=== PATIENT | female | born 1950 | race Caucasian/White ===

== ENCOUNTER 2018-11-09 18:19 | Emergency (ER) | payer BC, MEDICARE ==
[~2018-11-09] VITALS: Ht 165.1 cm; Wt 78.5 kg
--- NOTE | 2018-11-09 18:23 | ED.ADGEN ---
Adult General Chief Complaint Chief Complaint ".. I was at .. and cooking all day.. and I got dizzy.. probably dehydrated.. this is same thing that happen last year in October... " HPI HPI Patient is a 68 year old female who presents with above hx and complaints of near syncope. 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 Patient denies any travel. Patient denies specific ill contacts. Levi leigh normally follows with Dr. Dickson. Patient does have history of hypertension. Patient states he has had a previous episode similar to this last October when she got dehydrated. Patient denies trauma. Patient denies chest pain or dyspnea. Patient states her symptoms went away soon as she sat down. Patient denies any feelings of tachycardia or dysrhythmia Review of Systems Review of Systems Constitutional: Denies fever or chills [] Eyes: Denies change in visual acuity, redness, or eye pain [] HENT: Denies nasal congestion or sore throat [] Respiratory: Denies cough or shortness of breath [] Cardiovascular: No additional information not addressed in HPI [] GI: Denies abdominal pain, nausea, vomiting, bloody stools or diarrhea [] : Denies dysuria or hematuria [] Musculoskeletal: Denies back pain or joint pain [] Integument: Denies rash or skin lesions [] Neurologic: Denies headache, focal weakness or sensory changes []complaints of dizziness complaints Endocrine: Denies polyuria or polydipsia [] All other systems were reviewed and found to be within normal limits, except as documented in this note. Family History Family History Noncontributory Current Medications Current Medications Current Medications Medications (Trade) Dose Ordered Sig/Kenna Start Time Stop Time Status Last Admin Dose Admin Lactated Ringer's 1,000 ml @ 100 mls/hr Q10H 11/09/18 18:24 11/09/18 22:20 DC 11/09/18 19:14 100 MLS/HR Allergies Allergies Allergies Coded Allergies Type Severity Reaction Last Updated Verified cefdinir Allergy Unknown 11/09/18 Yes Physical Exam Physical Exam Constitutional: Well developed, well nourished, no acute distress, non-toxic appearance. [] HENT: Normocephalic, atraumatic, bilateral external ears normal, oropharynx dry, no oral exudates, nose normal. [] Eyes: PERRLA, EOMI, conjunctiva normal, no discharge. [] Neck: Normal range of motion, no tenderness, supple, no stridor. [] Cardiovascular:Heart rate regular rhythm, no murmur [] Lungs & Thorax: Bilateral breath sounds equal at apex on auscultation [] Abdomen: Bowel sounds normal, soft, no tenderness, no masses, no pulsatile masses. [] Skin: Warm, dry, no erythema, no rash. [] Back: No tenderness, no CVA tenderness. [] Extremities: No tenderness, no cyanosis, no clubbing, ROM intact, no edema. [] Neurologic: Alert and oriented X 3, normal motor function, normal sensory function, no focal deficits noted. []Math Instructor equal. No drift. DTRs +2 patella and brachial. Ambulatory without problems after hydration. Psychologic: Affect normal, judgement normal, mood normal. [] Current Patient Data Vital Signs Vital Signs Date Time Temp Pulse Resp B/P (MAP) Pulse Ox O2 Delivery O2 Flow Rate FiO2 11/09/18 22:17 82 16 135/76 (95) 97 Room Air 11/09/18 19:05 98.4 Lab Results Laboratory Tests Test 11/09/18 18:47 11/09/18 19:40 White Blood Count 8.8 x10^3/uL (4.0-11.0) Red Blood Count 4.11 x10^6/uL (3.50-5.40) Hemoglobin 13.7 g/dL (12.0-15.5) Hematocrit 39.4 % (36.0-47.0) Mean Corpuscular Volume 96 fL (79-100) Mean Corpuscular Hemoglobin 33 pg (25-35) Mean Corpuscular Hemoglobin Concent 35 g/dL (31-37) Red Cell Distribution Width 12.5 % (11.5-14.5) Platelet Count 272 x10^3/uL (140-400) Neutrophils (%) (Auto) 62 % (31-73) Lymphocytes (%) (Auto) 28 % (24-48) Monocytes (%) (Auto) 9 % (0-9) Eosinophils (%) (Auto) 1 % (0-3) Basophils (%) (Auto) 1 % (0-3) Neutrophils # (Auto) 5.4 x10^3uL (1.8-7.7) Lymphocytes # (Auto) 2.5 x10^3/uL (1.0-4.8) Monocytes # (Auto) 0.8 x10^3/uL (0.0-1.1) Eosinophils # (Auto) 0.1 x10^3/uL (0.0-0.7) Basophils # (Auto) 0.0 x10^3/uL (0.0-0.2) Erythrocyte Sedimentation Rate 21 (0-25) Prothrombin Time 10.4 SEC (9.4-11.4) Prothrombin Time INR 1.0 (0.9-1.1) Activated Partial Thromboplast Time 24 SEC (23-33) D-Dimer (Margarita) 0.55 mg/L (0.00-0.50) H Sodium Level 132 mmol/L (136-145) L Potassium Level 3.4 mmol/L (3.5-5.1) L Chloride Level 95 mmol/L (98-107) L Carbon Dioxide Level 28 mmol/L (21-32) Anion Gap 9 (6-14) Blood Urea Nitrogen 16 mg/dL (7-20) Creatinine 1.0 mg/dL (0.6-1.0) Estimated GFR (Cockcroft-Gault) 54.8 Glucose Level 123 mg/dL (70-99) H Calcium Level 9.0 mg/dL (8.5-10.1) Magnesium Level 1.9 mg/dL (1.8-2.4) Total Bilirubin 1.1 mg/dL (0.2-1.0) H Direct Bilirubin 0.3 mg/dL (0.0-0.2) H Aspartate Amino Transferase (AST) 24 U/L (15-37) Alanine Aminotransferase (ALT) 38 U/L (14-59) Alkaline Phosphatase 61 U/L (46-116) Creatine Kinase 65 U/L (26-192) Troponin I Quantitative < 0.017 ng/mL (0-0.055) OU-Dqp-M-Type Natriuretic Peptide 172 pg/mL (0-124) H Total Protein 7.3 g/dL (6.4-8.2) Albumin 4.1 g/dL (3.4-5.0) Lipase 92 U/L (73-393) Urine Collection Type Unknown Urine Color Yellow Urine Clarity Clear Urine pH 7.0 Urine Specific [place] 1.015 Urine Protein Neg (NEG-TRACE) Urine Glucose (UA) Neg mg/dL (NEG) Urine Ketones (Stick) Trace mg/dL (NEG) Urine Blood Trace (NEG) Urine Nitrite Neg (NEG) Urine Bilirubin Neg (NEG) Urine Urobilinogen Dipstick 0.2 mg/dL (0.2 mg/dL) Urine Leukocyte Esterase Neg (NEG) Urine RBC Occ /HPF (0-2) Urine WBC Occ /HPF (0-4) Urine Squamous Epithelial Cells Occ /LPF Urine Bacteria 0 /HPF (0-FEW) Urine Opiates Screen Neg (NEG) Urine Methadone Screen Neg (NEG) Urine Barbiturates Neg (NEG) Urine Phencyclidine Screen Neg (NEG) Urine Amphetamine/Methamphetamine Neg (NEG) Urine Benzodiazepines Screen Neg (NEG) Urine Cocaine Screen Neg (NEG) Urine Cannabinoids Screen Neg (NEG) Urine Ethyl Alcohol Neg (NEG) EKG EKG I interpretation of EKG shows a sinus rhythm at 75 bpm. There is nonspecific T- wave changes. And prolonged QT interval. At 424 milliseconds. Anicteric QTC is normal at 476.[] Radiology/Procedures Radiology/Procedures [[address] [address] IMAGING REPORT Signed PATIENT: CINDI FRAZIER RACCOUNT: [id number] : 1950 LOCATION: ER AGE: 68 SEX: F EXAM STATUS: REG ER ORD. PHYSICIAN: NEVAEH RODRIGUEZ MD REASON: near syncope PROCEDURE: CT HEAD WO CONTRAST Exam: CT head INDICATION: Near syncope TECHNIQUE: Sequential axial images through the head were obtained without the administration of IV contrast. Comparisons: None FINDINGS: No focal parenchymal lesion or hemorrhage is identified. There is no midline shift or sulcal effacement. Patchy areas of hypodensity within the periventricular and deep subcortical white matter. Subcentimeter focal hypodensity in the right internal capsule likely representing lacunar infarct. The ventricular system is within normal limits without compression hydrocephalus. The basal cisterns are well maintained. The visualized portions of the paranasal sinuses and mastoid air cells are well-pneumatized. No acute fractures. IMPRESSION: Patchy hypodensities in the periventricular and subcortical deep white matter which are age-indeterminate, likely chronic ischemic change. Exposure: One or more of the following in the visualized dose reduction techniques were utilized for this examination: 1. Automated exposure control 2. Adjustment of the MA and/or KV according to patient size Use of iterative of reconstructive technique Electronically signed by: Nell Dupree MD (11/09/2018 6:48 PM) [facility] DICTATED AND SIGNED BY: NELL DUPREE MD DATE: 11/09/18 201 CC: NEVAEH RODRIGUEZ MD; KIRK DICKSON MD ~][place] [address] IMAGING REPORT Signed PATIENT: CINDI FRAZIERUNT: [id number] : 1950 LOCATION: ER AGE: 68 SEX: F EXAM STATUS: REG ER ORD. PHYSICIAN: NEVAEH RODRIGUEZ MD REASON: near syncope PROCEDURE: PORTABLE CHEST 1V Exam: Chest one view INDICATION: Near syncope TECHNIQUE: Frontal view of the chest Comparisons: None FINDINGS: The cardiomediastinal silhouette and pulmonary vessels are within normal limits. The lung and pleural spaces are clear. IMPRESSION: No acute cardiopulmonary process. Electronically signed by: Nell Dupree MD (11/09/2018 7:00 PM) [facility] DICTATED AND SIGNED BY: NELL DUPREE MD DATE: 11/09/18 655 CC: NEVAEH RODRIGUEZ MD; KIRK DICKSON MD ~ Course & Med Decision Making Course & Med Decision Making Pertinent Labs and Imaging studies reviewed. (See chart for details). After IV fluids patient states her symptoms resolved. Patient was ambulatory without problems. Patient requesting discharge. Risk and benefits of discharge discussed. Patient states she will follow-up primary care or return if there is any problems. was in agreement with her decision to be discharged [] Final Impression Final Impression 1. Near Syncope[] 2. Dehydration 3. Hx. of Hypertension 4. Hyponatremia 132 5. Hypokalemia 6. Mild Elevation D-dimer 0.55 Dragon Disclaimer Dragon Disclaimer This electronic medical record was generated, in whole or in part, using a voice recognition dictation system. Dragon Disclaimer This chart was dictated in whole or in part using Voice Recognition software in a busy, high-work load, and often noisy Emergency Department environment. It may contain unintended and wholly unrecognized errors or omissions. NEVAEH RODRIGUEZ MD Nov 09, 2018 18:22
[2018-11-09] MEDS ORDERED: IV RINGERS SOLUTION,LACTATED 1,000 ML IV SCH (18:24)
--- NOTE | 2018-11-09 18:51 | RAD ---
Exam: CT head INDICATION: Near syncope TECHNIQUE: Sequential axial images through the head were obtained without the administration of IV contrast. Comparisons: None FINDINGS: No focal parenchymal lesion or hemorrhage is identified. There is no midline shift or sulcal effacement. Patchy areas of hypodensity within the periventricular and deep subcortical white matter. Subcentimeter focal hypodensity in the right internal capsule likely representing lacunar infarct. The ventricular system is within normal limits without compression hydrocephalus. The basal cisterns are well maintained. The visualized portions of the paranasal sinuses and mastoid air cells are well-pneumatized. No acute fractures. IMPRESSION: Patchy hypodensities in the periventricular and subcortical deep white matter which are age-indeterminate, likely chronic ischemic change. Exposure: One or more of the following in the visualized dose reduction techniques were utilized for this examination: 1. Automated exposure control 2. Adjustment of the MA and/or KV according to patient size Use of iterative of reconstructive technique Electronically signed by: Nell Arnold MD (11/09/2018 6:48 PM) [facility]
--- NOTE | 2018-11-09 19:02 | RAD ---
Exam: Chest one view INDICATION: Near syncope TECHNIQUE: Frontal view of the chest Comparisons: None FINDINGS: The cardiomediastinal silhouette and pulmonary vessels are within normal limits. The lung and pleural spaces are clear. IMPRESSION: No acute cardiopulmonary process. Electronically signed by: Nell Arnold MD (11/09/2018 7:00 PM) [facility]
[2018-11-09 19:22] LABS: BASO % 1 % (0-3); EOS # 0.1 x10^3/uL (0.0-0.7); EOS % 1 % (0-3); HEMATOCRIT 39.4 % (36.0-47.0); HEMOGLOBIN 13.7 g/dL (12.0-15.5); LYMPH # 2.5 x10^3/uL (1.0-4.8); LYMPH % 28 % (24-48); MEAN CORPUSCULAR HEMOGLOBIN 33 pg (25-35); MEAN CORPUSCULAR HGB CONC 35 g/dL (31-37); MEAN CORPUSCULAR VOLUME 96 fL (79-100); MONO # 0.8 x10^3/uL (0.0-1.1); MONO % 9 % (0-9); NEUT # 5.4 x10^3uL (1.8-7.7); NEUT % 62 % (31-73); PLATELET COUNT 272 x10^3/uL (140-400); RED BLOOD COUNT 4.11 x10^6/uL (3.50-5.40); RED CELL DISTRIBUTION WIDTH 12.5 % (11.5-14.5); WHITE BLOOD COUNT 8.8 x10^3/uL (4.0-11.0)
[2018-11-09 19:47] LABS: ALBUMIN 4.1 g/dL (3.4-5.0); DIRECT BILIRUBIN 0.3 mg/dL (0.0-0.2); GFR 54.8; MAGNESIUM 1.9 mg/dL (1.8-2.4); POTASSIUM 3.4 mmol/L (3.5-5.1); TOTAL BILIRUBIN 1.1 mg/dL (0.2-1.0); TOTAL PROTEIN 7.3 g/dL (6.4-8.2)
[2018-11-09 20:13] LABS: BARBITURATES NEG (NEG); BENZODIAZEPINES NEG (NEG); CANNABINOIDS NEG (NEG); COCAINE NEG (NEG); METHADONE NEG (NEG); OPIATES NEG (NEG); PHENCYCLIDINE NEG (NEG)
[2018-11-09 20:16] LABS: AMPHETAMINE/METHAMPHETAMINE NEG (NEG)
[2018-11-09 20:32] LABS: SEDIMENTATION RATE 21 (0-25)
[2018-11-09 20:50] LABS: BACTERIA,URINE 0 /HPF (0-FEW); BILIRUBIN,URINE NEG (NEG); CLARITY,URINE CLEAR; COLOR,URINE YELLOW; GLUCOSE,URINE NEG (NEG); NITRITE,URINE NEG (NEG); RBC,URINE OCC /HPF (0-2); SQUAMOUS EPITHELIAL CELL,UR OCC /LPF; UROBILINOGEN,URINE 0.2 mg/dL (0.2 mg/dL); WBC,URINE OCC /HPF (0-4)
[2018-11-09 22:17] VITALS: BP 135/76
--- NOTE | 2018-11-10 06:39 | EKG ---
[address] [address] Test Date: 2018-11-09 Test Time: 18:43:21 Pat Name: CINDI FRAZIER Department: Room: Gender: F Software Database Architect: : 1950 Requested By: NEVAEH RODRIGUEZ Order Number: [id number] Reading MD: Measurements Intervals [place] Rate: 75 P: 62 IA: 164 QRS: 7 QRSD: 102 T: 64 QT: 424 QTc: 476 Interpretive Statements SINUS RHYTHM T ABNORMALITY IN HIGH LATERAL LEADS PROLONGED QT ABNORMAL ECG RI6.01 No previous ECG available for comparison
[2018-11-10 20:50] LABS: THYROID STIM HORMONE (TSH) 2.495 uIU/mL (0.358-3.740)
== END 2018-11-09 22:20 | disposition home or self-care (01) ==
LOC: ER 18:19
DX: R55 Syncope and collapse (principal); E86.0 Dehydration; I10 Essential (primary) hypertension; E87.1 Hypo-osmolality and hyponatremia; E87.6 Hypokalemia; R79.1 Abnormal coagulation profile; Z88.1 Allergy status to other antibiotic agents
CPT/HCPCS: 36415; 70450; 71045; 80048; 80061; 80076; 80307; 81001; 82550; 83690; 83735; 83880; 84443; 84484; 85025; 85379; 85610; 85651; 85730; 93005; 96360; 96361; 99285; J7120

== ENCOUNTER 2018-11-21 13:26 | Observation (INO) | payer BC, MEDICARE ==
[~2018-11-21] VITALS: Ht 167.6 cm; Wt 80.3 kg
--- NOTE | 2018-11-21 13:56 | PHYS DOC ---
Past History Past Medical History: Hypertension, Hypothyroid Past Surgical History: No Surgical History Alcohol Use: None Drug Use: None Adult General Chief Complaint Chief Complaint: DIZZY/LIGHT HEADED [facility] HPI Patient is a 68-year-old female who presents with acute onset of generalized weakness that started a little after 11:30 this morning. She states that [facility] and suddenly she felt very weak and felt like she needed to sit down or she might pass out. She states that she got a little bit nauseated but did not develop any chest pain. She does feel a little bit short of breath. She denies any diaphoresis. She states that she had a very similar episode on the of this month. She denies any syncope or vertigo.[] Review of Systems Review of Systems Constitutional: Denies fever or chills [] Respiratory: Denies cough or shortness of breath [] Cardiovascular: No additional information not addressed in HPI [] GI: Denies abdominal pain. Positive nausea without vomiting. [] Neurologic: Denies headache, focal weakness or sensory changes [] All other systems were reviewed and found to be within normal limits, except as documented in this note. Allergies Allergies Allergies Coded Allergies Type Severity Reaction Last Updated Verified cefdinir Allergy Unknown 11/21/18 Yes Physical Exam Physical Exam Constitutional: Well developed, well nourished, no acute distress, non-toxic appearance. [] HENT: Normocephalic, atraumatic, bilateral external ears normal, oropharynx moist, no oral exudates, nose normal. [] Eyes: PERRLA, EOMI, conjunctiva normal, no discharge. [] Neck: Normal range of motion, no tenderness, supple. [] Cardiovascular: Regular rate and rhythm[] Lungs & Thorax: Bilateral breath sounds clear to auscultation [] Abdomen: Bowel sounds normal, soft, no tenderness. [] Skin: Warm, dry, no erythema, no rash. [] Extremities: No tenderness, no cyanosis, no clubbing, ROM intact. [] Neurologic: Alert and oriented X 3, no focal deficits noted. [] EKG EKG EKG demonstrates normal sinus rhythm with rate of 84 with left bundle branch pattern.[] Radiology/Procedures Radiology/Procedures [] Course & Med Decision Making Course & Med Decision Making Pertinent Labs and Imaging studies reviewed. (See chart for details) [] Dragon Disclaimer Dragon Disclaimer This electronic medical record was generated, in whole or in part, using a voice recognition dictation system. Departure Departure: Impression: Primary Impression: New onset left bundle branch block (LBBB) Additional Impressions: Near syncope Generalized weakness Disposition: ADMITTED INPATIENT Admitting Physician: Erika Holt Condition: IMPROVED Referrals: KIRK BELLO MD (PCP) Problem Qualifiers JHONNY GERONIMO Jr. DO Nov 21, 2018 13:55
[2018-11-21] MEDS ORDERED: IV NORMAL SALINE 1,000ML 1,000 ML IV SCH (14:01)
[2018-11-21 14:15] LABS: BASO % 1 % (0-3); EOS # 0.2 x10^3/uL (0.0-0.7); EOS % 2 % (0-3); HEMATOCRIT 41.6 % (36.0-47.0); HEMOGLOBIN 14.2 g/dL (12.0-15.5); LYMPH % 28 % (24-48); MEAN CORPUSCULAR HEMOGLOBIN 33 pg (25-35); MEAN CORPUSCULAR HGB CONC 34 g/dL (31-37); MEAN CORPUSCULAR VOLUME 96 fL (79-100); MONO # 0.5 x10^3/uL (0.0-1.1); MONO % 7 % (0-9); NEUT # 4.4 x10^3uL (1.8-7.7); NEUT % 62 % (31-73); PLATELET COUNT 293 x10^3/uL (140-400); RED BLOOD COUNT 4.34 x10^6/uL (3.50-5.40); RED CELL DISTRIBUTION WIDTH 12.2 % (11.5-14.5); WHITE BLOOD COUNT 7.1 x10^3/uL (4.0-11.0)
[2018-11-21] MEDS ORDERED: ASPIRIN 81 MG TAB.CHEW PO ONE (14:15)
[2018-11-21 14:23] LABS: BACTERIA,URINE 0 /HPF (0-FEW); BILIRUBIN,URINE NEG (NEG); CLARITY,URINE CLEAR; COLOR,URINE YELLOW; GLUCOSE,URINE NEG (NEG); NITRITE,URINE NEG (NEG); SQUAMOUS EPITHELIAL CELL,UR OCC /LPF; UROBILINOGEN,URINE 0.2 mg/dL (0.2 mg/dL); WBC,URINE OCC /HPF (0-4)
--- NOTE | 2018-11-21 14:23 | RAD ---
EXAM: Chest, single view. HISTORY: Left bundle-branch block. COMPARISON: 11/09/2018. FINDINGS: A frontal view of the chest obtained. There is no infiltrate, pleural effusion or pneumothorax. There is a stable prominent cardiac silhouette, a component of which is due to portable technique. IMPRESSION: No acute pulmonary finding. Electronically signed by: Oliva Taylor MD (11/21/2018 2:20 PM) [place] [id number]
[2018-11-21 14:30] LABS: ALBUMIN 4.1 g/dL (3.4-5.0); ALBUMIN/GLOBULIN RATIO 1.1 (1.0-1.7); CALCIUM 9.3 mg/dL (8.5-10.1); CREATININE 0.7 mg/dL (0.6-1.0); GFR 82.7; MAGNESIUM 1.8 mg/dL (1.8-2.4); POTASSIUM 3.8 mmol/L (3.5-5.1); TOTAL PROTEIN 7.7 g/dL (6.4-8.2)
[2018-11-21] MEDS ORDERED: ONDANSETRON PF 4 MG/2 ML VIAL. IV PRN (15:00)
[2018-11-21] MEDS ORDERED: ONDANSETRON PF 4 MG/2 ML VIAL. IV ONE (15:15)
[2018-11-21] MEDS: IV NORMAL SALINE 1,000ML 1,000 ML IV SCH ×2 (15:17→17:15)
[2018-11-21 16:42] VITALS: BP 166/62
--- NOTE | 2018-11-21 17:02 | EKG ---
[address] [address] Test Date: 2018-11-21 Test Time: 13:35:05 Pat Name: CINDI FRAZIER Department: Room: [facility] Gender: F Disk Sander: : 1950 Requested By: JHONNY GERONIMO Order Number: [id number] Reading MD: Con Klein MD Measurements Intervals [place] Rate: 84 P: 53 MI: 160 QRS: -17 QRSD: 156 T: 99 QT: 408 QTc: 486 Interpretive Statements SINUS RHYTHM LBBB Electronically Signed On 11-21-2018 18:48:04 CDT by Con Klein MD
[2018-11-21 17:12] VITALS: BP 171/71
[2018-11-21 17:14] VITALS: BP 178/71
[2018-11-21 17:17] VITALS: BP 168/61
[2018-11-21] MEDS ORDERED: SIMV80TA17 PO (17:52)
[2018-11-21] MEDS ORDERED: ACET500T68 PO (17:52)
[2018-11-21] MEDS ORDERED: VALS1TAB22 PO (17:52)
[2018-11-21] MEDS ORDERED: LEVO100T5 PO (17:52)
[2018-11-21] MEDS ORDERED: MULT-650 PO (17:52)
[2018-11-21] MEDS ORDERED: FISH12002 PO (17:52)
[2018-11-21] MEDS ORDERED: CALC-157 PO (17:52)
[2018-11-21] MEDS: ACETAMINOPHEN 500 MG TABLET PO PRN (22:26)
[2018-11-21] MEDS: amLODIPine BESYLATE 5 MG TABLET PO SCH (22:26)
[2018-11-21] MEDS ORDERED: SIMVASTATIN 40 MG TABLET. PO SCH (22:30)
[2018-11-21 22:50] VITALS: BP 170/66
[2018-11-21 23:51] VITALS: BP 138/53
[2018-11-22 01:00] VITALS: BP 110/51
[2018-11-22] MEDS: IV NORMAL SALINE 1,000ML 1,000 ML IV SCH (04:13)
[2018-11-22 06:00] VITALS: BP 156/82
[2018-11-22] MEDS ORDERED: LEVOTHYROXINE 100 MCG TABLET PO SCH (06:00)
[2018-11-22 06:21] LABS: BASO % 1 % (0-3); EOS # 0.2 x10^3/uL (0.0-0.7); EOS % 3 % (0-3); HEMATOCRIT 36.8 % (36.0-47.0); HEMOGLOBIN 12.7 g/dL (12.0-15.5); LYMPH % 32 % (24-48); MEAN CORPUSCULAR HEMOGLOBIN 33 pg (25-35); MEAN CORPUSCULAR HGB CONC 35 g/dL (31-37); MEAN CORPUSCULAR VOLUME 96 fL (79-100); MONO # 0.5 x10^3/uL (0.0-1.1); MONO % 9 % (0-9); NEUT # 3.5 x10^3uL (1.8-7.7); NEUT % 56 % (31-73); PLATELET COUNT 262 x10^3/uL (140-400); RED BLOOD COUNT 3.84 x10^6/uL (3.50-5.40); RED CELL DISTRIBUTION WIDTH 12.4 % (11.5-14.5); WHITE BLOOD COUNT 6.2 x10^3/uL (4.0-11.0)
[2018-11-22 06:22] LABS: ALBUMIN 3.2 g/dL (3.4-5.0); ALBUMIN/GLOBULIN RATIO 1.1 (1.0-1.7); CALCIUM 8.7 mg/dL (8.5-10.1); CREATININE 0.6 mg/dL (0.6-1.0); GFR 98.8; POTASSIUM 3.7 mmol/L (3.5-5.1); TOTAL BILIRUBIN 1.1 mg/dL (0.2-1.0); TOTAL PROTEIN 6.1 g/dL (6.4-8.2)
[2018-11-22 08:00] VITALS: BP 160/72
--- NOTE | 2018-11-22 08:24 | PDOC2 ---
ROSEMARY RONQUILLO HISTOLOGICAL ILLUSTRATOR 11/22/18 0824: CARDIAC CONSULT DATE OF CONSULT Date Of Consult DATE: 11/22/18 TIME: 08:21 REASON FOR CONSULT Reason for Consult New onset left BBB REFERRING PHYSICIAN Referring Physician Dr. Keen SOURCE Source: Chart review, Patient HPI History of Present Illness This is a 68 yo female who presented secondary to episode of weakness, dizziness. Patient reports she was at [facility] yesterday. Bent over to bean picker an item from the bottom shelf. When she stood up she felt lightheaded/dizzy then became weak and felt like she could pass out. No associated chest pain, shortness of breath, diaphoresis, or nausea/vomiting. No recent CHAUDHRY, orthopnea, or LE edema. An episode very similar to this occurred 11/09/18 for which she was evaluated her in the ED and discharge home. EKG noted with LBBB, which prompted this consult. PAST MEDICAL HISTORY Cardiovascular: HTN, hyperipidemia Musculoskeletal: Osteoarthritis Endocrine: Hypothyroidism PAST SURGICAL HISTORY Past Surgical History: Tubal Ligation, Tonsillectomy FAMILY HISTORY Family History: Heart Disease, Hypertension SOCIAL HISTORY Smoke: Quit (2000) ALCOHOL: none Drugs: None Lives: with Family CURRENT MEDICATIONS Current Medications Current Medications Aspirin (Children'S Aspirin) 324 mg 1X ONCE PO ; Start 11/21/18 at 14:15; Stop 11/21/18 at 14:16; Status DC Sodium Chloride 1,000 ml @ 1,000 mls/hr Q1H IV Last administered on 11/21/18at 14:06; Start 11/21/18 at 14:01; Stop 11/21/18 at 15:01; Status DC Ondansetron HCl (Zofran) 4 mg 1X ONCE IV Last administered on 11/21/18at 15:20; Start 11/21/18 at 15:15; Stop 11/21/18 at 15:16; Status DC Ondansetron HCl (Zofran) 4 mg PRN Q4HRS PRN IV NAUSEA/VOMITING; Start 11/21/18 at 15:00; Stop 11/22/18 at 14:59 Sodium Chloride 1,000 ml @ 125 mls/hr Q8H IV Last administered on 11/22/18at 04:13; Start 11/21/18 at 14:53; Stop 11/22/18 at 14:52 Amlodipine Besylate (Norvasc) 5 mg DAILY PO Last administered on 11/21/18at 22:27; Start 11/21/18 at 19:15 Acetaminophen (Tylenol) 1,000 mg PRN BID PRN PO PAIN Last administered on 11/21/18at 22:27; Start 11/21/18 at 19:15 Calcium/Vitamin D (Oscal D 500mg/ 200uts) 1 tab DAILY PO ; Start 11/22/18 at 09:00 Levothyroxine Sodium (Synthroid) 100 mcg DAILY06 PO Last administered on 11/22/18at 05:48; Start 11/22/18 at 06:00 Fish Oil (Fish Oil) 1,000 mg DAILY PO ; Start 11/22/18 at 09:00 Multivitamins/ Calcium (Thera-M Plus) 1 tab DAILY PO ; Start 11/22/18 at 09:00 Simvastatin (Zocor) 80 mg DAILY PO ; Start 11/22/18 at 09:00; Stop 11/21/18 at 22:18; Status DC Losartan Potassium (Cozaar) 100 mg DAILY PO ; Start 11/22/18 at 09:00 Hydrochlorothiazide (Hydrodiuril) 25 mg DAILY PO ; Start 11/22/18 at 09:00 Simvastatin (Zocor) 80 mg DAILY PO Last administered on 11/21/18at 22:27; Start 11/21/18 at 22:30; Stop 11/21/18 at 22:41; Status DC Simvastatin (Zocor) 80 mg HS PO ; Start 11/22/18 at 21:00 Active Scripts Active Reported Acetaminophen 500 Mg Tablet 2 Tab PO BID PRN Calcium 500 + Vit D 200 Tablet (Calcium Carbonate/Vitamin D3) 1 Each Tablet 1 Each PO DAILY [place] 3-6-9 1,200 mg Softgel (Fish Oil/Borage/Flax/Om3,6,9#1) 1,200 Mg Capsule 1,200 Mg PO DAILY Centrum Silver Women Tablet (Multivits-Min/Iron/FA/Lutein) 1 Each Tablet 1 Each PO DAILY Simvastatin 80 Mg Tablet 1 Tab PO DAILY Diovan Hct 320-25 Mg Tablet (Valsartan/Hydrochlorothiazide) 1 Each Tablet 1 Tab PO DAILY Levothyroxine Sodium 100 Mcg Tablet 1 Tab PO DAILY06 ALLERGIES Allergies: Coded Allergies: cefdinir (Verified Allergy, Intermediate, 11/22/18) ROS Review of Systems 14 point ROS conducted with pertinent positives noted above in HPI PHYSICAL EXAM General: Alert, Oriented X3, Cooperative, No acute distress HEENT: Atraumatic, Mucous membr. moist/pink Lungs: Clear to auscultation, Normal air movement Heart: Regular rate, Normal S1, Normal S2 Abdomen: Soft, No tenderness Extremities: No edema, Normal pulses Skin: No breakdown Neuro: Normal speech, Sensation intact Psych/Mental Status: Mental status NL, Mood NL MUSCULOSKELETAL: Osteoarthritic changes both hands VITALS Vital Signs Vital Signs Date Time Temp Pulse Resp B/P (MAP) Pulse Ox O2 Delivery O2 Flow Rate FiO2 11/22/18 06:00 98.0 64 14 156/82 (106) 99 Room Air LABS LABS Laboratory Tests Test 11/21/18 13:33 11/21/18 14:00 11/21/18 17:50 11/21/18 21:35 White Blood Count 7.1 x10^3/uL (4.0-11.0) Red Blood Count 4.34 x10^6/uL (3.50-5.40) Hemoglobin 14.2 g/dL (12.0-15.5) Hematocrit 41.6 % (36.0-47.0) Mean Corpuscular Volume 96 fL (79-100) Mean Corpuscular Hemoglobin 33 pg (25-35) Mean Corpuscular Hemoglobin Concent 34 g/dL (31-37) Red Cell Distribution Width 12.2 % (11.5-14.5) Platelet Count 293 x10^3/uL (140-400) Neutrophils (%) (Auto) 62 % (31-73) Lymphocytes (%) (Auto) 28 % (24-48) Monocytes (%) (Auto) 7 % (0-9) Eosinophils (%) (Auto) 2 % (0-3) Basophils (%) (Auto) 1 % (0-3) Neutrophils # (Auto) 4.4 x10^3uL (1.8-7.7) Lymphocytes # (Auto) 2.0 x10^3/uL (1.0-4.8) Monocytes # (Auto) 0.5 x10^3/uL (0.0-1.1) Eosinophils # (Auto) 0.2 x10^3/uL (0.0-0.7) Basophils # (Auto) 0.0 x10^3/uL (0.0-0.2) Sodium Level 132 mmol/L (136-145) Potassium Level 3.8 mmol/L (3.5-5.1) Chloride Level 94 mmol/L (98-107) Carbon Dioxide Level 25 mmol/L (21-32) Anion Gap 13 (6-14) Blood Urea Nitrogen 14 mg/dL (7-20) Creatinine 0.7 mg/dL (0.6-1.0) Estimated GFR (Cockcroft-Gault) 82.7 BUN/Creatinine Ratio 20 (6-20) Glucose Level 114 mg/dL (70-99) Calcium Level 9.3 mg/dL (8.5-10.1) Magnesium Level 1.8 mg/dL (1.8-2.4) Total Bilirubin 1.0 mg/dL (0.2-1.0) Aspartate Amino Transf (AST/SGOT) 27 U/L (15-37) Alanine Aminotransferase (ALT/SGPT) 42 U/L (14-59) Alkaline Phosphatase 66 U/L (46-116) Troponin I Quantitative < 0.017 ng/mL (0-0.055) 0.058 ng/mL (0-0.055) 0.067 ng/mL (0-0.055) QQ-Hng-E-Type Natriuretic Peptide 184 pg/mL (0-124) Total Protein 7.7 g/dL (6.4-8.2) Albumin 4.1 g/dL (3.4-5.0) Albumin/Globulin Ratio 1.1 (1.0-1.7) Urine Collection Type Void Urine Color Yellow Urine Clarity Clear Urine pH 8.5 Urine Specific [place] 1.015 Urine Protein Neg (NEG-TRACE) Urine Glucose (UA) Neg mg/dL (NEG) Urine Ketones (Stick) Neg mg/dL (NEG) Urine Blood Neg (NEG) Urine Nitrite Neg (NEG) Urine Bilirubin Neg (NEG) Urine Urobilinogen Dipstick 0.2 mg/dL (0.2 mg/dL) Urine Leukocyte Esterase Neg (NEG) Urine RBC 1-2 /HPF (0-2) Urine WBC Occ /HPF (0-4) Urine Squamous Epithelial Cells Occ /LPF Urine Bacteria 0 /HPF (0-FEW) Test 11/22/18 05:40 White Blood Count 6.2 x10^3/uL (4.0-11.0) Red Blood Count 3.84 x10^6/uL (3.50-5.40) Hemoglobin 12.7 g/dL (12.0-15.5) Hematocrit 36.8 % (36.0-47.0) Mean Corpuscular Volume 96 fL (79-100) Mean Corpuscular Hemoglobin 33 pg (25-35) Mean Corpuscular Hemoglobin Concent 35 g/dL (31-37) Red Cell Distribution Width 12.4 % (11.5-14.5) Platelet Count 262 x10^3/uL (140-400) Neutrophils (%) (Auto) 56 % (31-73) Lymphocytes (%) (Auto) 32 % (24-48) Monocytes (%) (Auto) 9 % (0-9) Eosinophils (%) (Auto) 3 % (0-3) Basophils (%) (Auto) 1 % (0-3) Neutrophils # (Auto) 3.5 x10^3uL (1.8-7.7) Lymphocytes # (Auto) 2.0 x10^3/uL (1.0-4.8) Monocytes # (Auto) 0.5 x10^3/uL (0.0-1.1) Eosinophils # (Auto) 0.2 x10^3/uL (0.0-0.7) Basophils # (Auto) 0.0 x10^3/uL (0.0-0.2) Sodium Level 140 mmol/L (136-145) Potassium Level 3.7 mmol/L (3.5-5.1) Chloride Level 105 mmol/L (98-107) Carbon Dioxide Level 29 mmol/L (21-32) Anion Gap 6 (6-14) Blood Urea Nitrogen 7 mg/dL (7-20) Creatinine 0.6 mg/dL (0.6-1.0) Estimated GFR (Cockcroft-Gault) 98.8 BUN/Creatinine Ratio 12 (6-20) Glucose Level 94 mg/dL (70-99) Calcium Level 8.7 mg/dL (8.5-10.1) Total Bilirubin 1.1 mg/dL (0.2-1.0) Aspartate Amino Transf (AST/SGOT) 21 U/L (15-37) Alanine Aminotransferase (ALT/SGPT) 31 U/L (14-59) Alkaline Phosphatase 52 U/L (46-116) Troponin I Quantitative 0.036 ng/mL (0-0.055) Total Protein 6.1 g/dL (6.4-8.2) Albumin 3.2 g/dL (3.4-5.0) Albumin/Globulin Ratio 1.1 (1.0-1.7) ASSESSMENT/PLAN Assessment/Plan 1. Near syncope; ? vasovagal. 2. Hypertension; mildly elevated upon arrival 3. Hyperlipidemia; lipid on goal 11/13 4. Mild troponin elevation; peak 0.067. CP free. 5. LBBB; new from EKG 11/09/18 6. Hypothyroidism; TSH WNL 11/13 Recommendations Add ASA, continue statin Echo to assess LV systolic function Resume home antiHTN therapy Will need further ischemic workup. Cath versus stress testing pending echo results Consider outpatient event monitor. Supportive carte GARCIA MENDOZA MD 11/22/18 1734: CARDIAC CONSULT ASSESSMENT/PLAN Assessment/Plan Pt. seen and examined. Agree with above [employer] note. 68 y.o F presenting with near syncope and weakness. No clear cardiac symptoms. She has some mild dyspnea but able to ride 2.5 miles on a bike. She had a normal head CT. Although trop is elevated, likely due to HTN. EKG shows LBBB, no ischemic findings. Echo wnl. Neuro eval pending per primary. D-dimer elevated at last visit to ER, unclear if anything was followed up. Will defer to PCP. No clear risk factors for P.E. Supportive care. We will send her an event monitor. No need for stress testing. Ortho's negative. Thanks ROSEMARY RONQUILLO APRN Nov 22, 2018 08:24 GARCIA MENDOZA MD Nov 22, 2018 17:34
[2018-11-22] MEDS: ACETAMINOPHEN 500 MG TABLET PO PRN ×2 (08:57→14:53)
[2018-11-22] MEDS: amLODIPine BESYLATE 5 MG TABLET PO SCH (08:58)
[2018-11-22] MEDS ORDERED: OMEGA-3 FATTY ACIDS/FISH OIL 1,000 MG CAPSULE. PO SCH (09:00)
[2018-11-22] MEDS ORDERED: ASPIRIN ENTERIC COATED 81 MG TABLET.DR. PO SCH (09:00)
[2018-11-22] MEDS ORDERED: SIMVASTATIN 40 MG TABLET. PO SCH ×2 (09:00→21:00)
[2018-11-22] MEDS ORDERED: CALCIUM CARB/VIT D3 500/200 TABLET PO SCH (09:00)
[2018-11-22] MEDS ORDERED: LOSARTAN 50 MG TABLET. PO SCH (09:00)
[2018-11-22] MEDS ORDERED: hydroCHLOROthiazide 25 MG TABLET PO SCH (09:00)
[2018-11-22] MEDS ORDERED: MULTIVITAMIN with MINERAL TABLET. PO SCH (09:00)
[2018-11-22 13:00] VITALS: BP 164/72
--- NOTE | 2018-11-22 13:53 | RAD ---
EXAM: Carotid Doppler sonogram. HISTORY: Weakness. Transient ischemic attack. TECHNIQUE: Kumar scale and color Doppler sonographic evaluation of the neck with spectral waveform analysis was performed and static images are submitted for review. FINDINGS: There is mild atherosclerotic plaque within the proximal right external carotid artery and left internal carotid artery. The peak systolic velocity within the right common carotid artery is 68 cm/sec. The peak systolic velocity within the right internal carotid artery is 69 cm/sec and the end diastolic velocity within the right internal carotid artery is 22 cm/sec. The right ICA/CCA ratio is 1.0. The peak systolic velocity within the left common carotid artery is 99 cm/sec. The peak systolic velocity within the left internal carotid artery is 68 cm/sec and the end diastolic velocity within the left internal carotid artery is 22 cm/sec. The left ICA/CCA ratio is less than 1.0. There is normal antegrade flow within both vertebral arteries. IMPRESSION: No Doppler evidence of hemodynamically significant stenosis within the carotid or vertebral arteries. PQRS Compliance Statement - Stenosis calculations for CT, MR and conventional angiography are based upon measurement of the distal ICA diameter in accordance with the NASCET methodology. Stenosis calculations for carotid ultrasound studies are derived from validated velocity criteria which are known to correlate with the NASCET methodology. Electronically signed by: Oliva Taylor MD (11/22/2018 1:50 PM) [id number]
[2018-11-22 14:35] LABS: THYROID STIM HORMONE (TSH) 1.705 uIU/mL (0.358-3.740)
--- NOTE | 2018-11-22 16:15 | CARD ---
MR#: [id number] Date of Study: 11/22/2018 Ordering Physician: FABRICIO ROJO, Referring Physician: FABRICIO ROJO Tech: Rubi Justice RDCS APPROVED REPORT EXAM: Two-dimensional and M-mode echocardiogram with Doppler and color Doppler. Other Information Quality : Good Rhythm : LBBB INDICATION Abnormal ECG 2D DIMENSIONS RVDd2.4 (2.9-3.5cm)Left Atrium(2D)3.6 (1.6-4.0cm) IVSd1.1 (0.7-1.1cm)Aortic Root(2D)2.8 (2.0-3.7cm) LVDd4.4 (3.9-5.9cm)LVOT Diameter2.0 (1.8-2.4cm) PWd1.1 (0.7-1.1cm)LVDs3.5 (2.5-4.0cm) FS (%) 25.0 %SV36.9 ml LVEF(%)50.0 (>50%) Aortic Valve AoV Peak Nathanael.151.6cm/sAoV VTI25.7cm AO Peak GR.9.2mmHgAO Mean GR.5mmHg VIANNEY (VTI)2.74cm2 Mitral Valve MV E Tkiknevm84.7cm/sMV DECEL HELJ28ui MV A Dcvmbdhq245.4cm/sE/A Ratio0.6 Tricuspid Valve TR P. Wpriopkv834qx/sRAP MCPHIPMV7ziDh TR Peak Gr.[id number] LEFT VENTRICLE The left ventricle is normal size. There is normal left ventricular wall thickness. Left ventricle sy stolic function is low normal. The Ejection Fraction is 50-55%. Septal motion consistent with conduct ion abnormality. Transmitral Doppler flow pattern is Grade I-abnormal relaxation pattern. RIGHT VENTRICLE The right ventricle is normal size. The right ventricular systolic function is normal. ATRIA The left atrium size is normal. The right atrium size is normal. The interatrial septum is intact wit h no evidence for an atrial septal defect or patent foramen ovale as noted on 2-D or Doppler imaging. AORTIC VALVE The aortic valve is calcified but opens well. Doppler and Color Flow revealed trace aortic regurgitat ion. There is no significant aortic valvular stenosis. MITRAL VALVE The mitral valve is calcified but opens well. Mitral annular calcification is mild. There is no evide nce of mitral valve prolapse. There is no mitral valve stenosis. Doppler and Color-flow revealed trac e mitral regurgitation. TRICUSPID VALVE The tricuspid valve is normal in structure and function. Doppler and Color Flow revealed trace tricus pid regurgitation. The PA pressure was estimated at 30 mmHg. There is no tricuspid valve stenosis. PULMONIC VALVE The pulmonic valve is not well visualized. Doppler and Color Flow revealed trace pulmonic valvular re gurgitation. There is no pulmonic valvular stenosis. GREAT VESSELS The aortic root is normal in size. The ascending aorta is not well seen. The IVC is normal in size an d collapses >50% with inspiration. PERICARDIAL EFFUSION There is no evidence of significant pericardial effusion. Critical Notification Critical Value: No <Conclusion> Left ventricle systolic function is low normal. The Ejection Fraction is 50-55%. Septal motion consistent with conduction abnormality. Signed by : Con Klein, Electronically Approved : 11/22/2018 16:14:50
--- NOTE | 2018-11-22 16:15 | HP ---
ADMIT DATE: 11/21/2018 HISTORY OF PRESENT ILLNESS: The patient is a 68-year-old female patient, who came to the Emergency Room with acute onset of generalized weakness that started a little after 1130 day of admission. She stated that [facility] and suddenly she felt very weak and felt like she needs to sit down, she might pass out. She stated that she got a little bit nauseated, but did not develop any chest pain, does feel a little bit short of breath. Denied any diaphoresis. She had a similar episode on the of this month. She denied any syncope or vertigo. She was extensively investigated in the Emergency Room. Her EKG showed that she was in sinus rhythm at heart rate of 84 with left bundle branch pattern. She has had lab work that showed that she has mild hyponatremia and her troponin was 0.017. She was admitted to do 2 more sets of cardiac enzyme and consult the cardiology team. PAST MEDICAL HISTORY: Significant for hypertension, hyperlipidemia, hypothyroidism. PAST SURGICAL HISTORY: Significant for tonsillectomy and tubal ligation. ALLERGIES: She is allergic to CEFDINIR. MEDICATIONS: She is currently on following medications: She is on simvastatin 80 mg once a day, valsartan/hydrochlorothiazide 320/25 one tablet once a day, acetaminophen 1000 mg twice a day, calcium carbonate with vitamin D one tablet once a day, levothyroxine sodium 100 mcg once a day, multivitamin for Centrum Silver 1 tablet once a day, fish oil for omega-3 fatty acid 1 tablet once a day. FAMILY HISTORY: She has one brother still alive and younger and 1 sister older at age of 71 because of breast cancer. Both parents are . Her mother at age of 70 due to congestive heart failure. She does not know the cause of of her father. SOCIAL HISTORY: She is , has 1 daughter and 1 son. She is an ex-smoker, quit in 2000. She also used to drink alcohol heavily. She quit 3 years ago. She works a ____ and also in [employer]. REVIEW OF SYSTEMS: The patient denied any blurring of vision, cataract, glaucoma or macular degeneration. Denied any earache, tinnitus, ____ deafness. Denied nosebleed, stuffiness, postanal drip. Denied any sore throat, sore tongue, toothache, hoarseness of voice or difficulty swallowing. Denied any nausea, vomiting, diarrhea or constipation. Denied any hematemesis, melena, hematochezia. Denied any dysuria, frequency or hematuria. Denied any chest pain. Did complain of shortness of breath, dizziness, lightheadedness, no chills, rigors or fever. PHYSICAL EXAMINATION: GENERAL: On arrival to the Emergency Room, she looked well and was clearly in no apparent respiratory distress. No pallor, jaundice, cyanosis or thyromegaly. No jugular venous distension. No lower limb edema. VITAL SIGNS: Her heart rate on arrival was 91, blood pressure was 163/56, temperature was 98.6, respiratory rate was 20, and oxygen saturation was 100% on room air. HEAD, EYES, EARS, NOSE AND THROAT: Showed normocephalic, atraumatic. NECK: Supple. HEART: Showed normal first and second heart sounds. No gallop, rub or murmur. CHEST: Clear to auscultation. No crepitation or rhonchi. ABDOMEN: Distended, soft, nontender. NEUROLOGIC: She is awake, alert, responding appropriately. All cranial nerves intact. EXTREMITIES: She moves extremities without difficulty. She ambulates normally without assistance or assistive devices, although she apparently continued to have feeling of dizziness, some tingling, numbness and weakness in the left side. LABORATORY DATA: On admission showed a white cell count 7100, hemoglobin 14, hematocrit 42, MCV 96, and platelet count 293,000 with normal manual differential. Her serum sodium was 132, potassium 3.8, chloride 94, bicarbonate 25, anion gap of 13, BUN 14, creatinine 0.7, estimated GFR was 82 mL per minute. Her glucose was 114, calcium was 9.3, magnesium was 1.8. Total bilirubin, AST, ALT, alkaline phosphatase were normal. Total protein was ____. Her urinalysis showed the urine was yellow, clear with a pH of 8.5, specific gravity 1.015. The urine was negative for protein, glucose, ketones, blood, nitrite and leukocyte esterase. There are only 1-2 rbc's, occasional wbc's, and no bacteria. Her chest x-ray showed the frontal view of the chest obtained. There is no infiltrate, pleural effusion, or pneumothorax. There is stable prominent cardiac silhouette, a component of which is due to portable technique. PLAN: The patient was admitted to do 2 more sets of cardiac enzyme and to consult the cardiology team. FABRICIO ROJO MD DR: MIRANDA/ebth JOB#: [id number] / [id number]
[2018-11-22 16:58] VITALS: BP 164/72
[2018-11-22] MEDS ORDERED: AMLO5TAB10 PO (18:40)
== END 2018-11-22 19:06 | disposition home or self-care (01) ==
LOC: ER 13:26 → ICU 14:50 → INTOOBSV 14:50
PROVIDERS: ADMIT Internal Medicine; ATTEND Internal Medicine
DX: R55 Syncope and collapse (principal); R42 Dizziness and giddiness; I44.7 Left bundle-branch block, unspecified; R53.1 Weakness; E87.1 Hypo-osmolality and hyponatremia; I10 Essential (primary) hypertension; E78.5 Hyperlipidemia, unspecified; E03.9 Hypothyroidism, unspecified; Z80.3 Family history of malignant neoplasm of breast; Z82.49 Family history of ischemic heart disease and other diseases of the circulatory system; Z87.891 Personal history of nicotine dependence; R74.8 Abnormal levels of other serum enzymes
CPT/HCPCS: 36415; 71045; 80053; 80061; 81001; 83735; 83880; 84443; 84484; 85025; 87641; 93005; 93306; 93880; 96361; 96374; 99284; G0378; G0379; J2405; 99285-25; J7030

== ENCOUNTER 2020-02-29 17:14 | Emergency (ER) | payer BC, MEDICARE ==
[~2020-02-29] VITALS: Ht 167.6 cm; Wt 95.2 kg
[~2020-02-29 17:14] MED LIST: ACET500T68 PO; AMLO-186 PO; CALC-157 PO; FISH12002 PO; LEVO100T5 PO; MULT-650 PO; SIMV80TA17 PO; VALS1TAB22 PO
--- NOTE | 2020-02-29 17:17 | PHYS DOC ---
Past History Past Medical History: High Cholesterol, Hypertension, Hypothyroid (JOSELYN SEALS APRN) Past Surgical History: Tonsillectomy, Tubal ligation (JOSELYN SEALS APRN) Alcohol Use: None Drug Use: None (JOSELYN SEALS APRN) Smoking: Non-smoker, Quit Greater Than 1 Year Alcohol Use: None Drug Use: None (SHELTON JULIO DO) Adult General HPI HPI Patient is a [age] year old [sex] who presents with [] (JOSELYN SEALS APRN) HPI Patient is a 70-year-old female complaining of fatigue and dizziness. Onset was this morning, states she has not been feeling well for past 72 hours without any known inciting event and/or provoking factor. No recent major changes in health, states she has been seen and treated in outpatient setting for high blood pressure, hypercholesterolemia and hypothyroid. No changes in recent medications, no fever, no COVID-19 contact, no other reportable symptoms. Reports waking up today feeling dizzy and lightheaded. States she has vague dull chest pressure that does not radiate and states she just "feel weak all over". No history of provocative cardiac work-up, no history of structural heart disease, no prior history of CVA or blood clots. Has distant history of recreational alcohol and cigarette use, no other history IV drug or other illicit drug abuse. (SHELTON JULIO DO) Review of Systems Review of Systems Constitutional: Denies fever or chills [] Eyes: Denies change in visual acuity, redness, or eye pain [] HENT: Denies nasal congestion or sore throat [] Respiratory: Denies cough or shortness of breath [] Cardiovascular: No additional information not addressed in HPI [] GI: Denies abdominal pain, nausea, vomiting, bloody stools or diarrhea [] : Denies dysuria or hematuria [] Musculoskeletal: Denies back pain or joint pain [] Integument: Denies rash or skin lesions [] Neurologic: Denies headache, focal weakness or sensory changes [] Endocrine: Denies polyuria or polydipsia [] All other systems were reviewed and found to be within normal limits, except as documented in this note. (JOSELYN SEALS APRN) Review of Systems Fourteen body systems of review of systems have been reviewed. See my HPI for pertinent positives and negative responses, other mena all other systems are negative, non-pertinent or non-contributory (SHELTON JULIO DO) Current Medications Current Medications Current Medications Medications (Trade) Dose Ordered Sig/Kenna Start Time Stop Time Status Last Admin Dose Admin Acetaminophen (Tylenol) 1,000 mg 1X ONCE 02/29/20 18:45 02/29/20 18:55 DC 02/29/20 19:07 1,000 MG Nitroglycerin/ Dextrose 250 ml @ 0 mls/hr 1X ONCE 02/29/20 18:45 02/29/20 18:55 DC 02/29/20 19:07 1.5 MLS/HR (SHELTON JULIO DO) Allergies Allergies Allergies Coded Allergies Type Severity Reaction Last Updated Verified cefdinir Allergy Intermediate 11/22/18 Yes (JOSELYN SEALS APRN) Physical Exam Physical Exam Constitutional: Well developed, well nourished, no acute distress, non-toxic appearance. [] HENT: Normocephalic, atraumatic, bilateral external ears normal, oropharynx moist, no oral exudates, nose normal. [] Eyes: PERRLA, EOMI, conjunctiva normal, no discharge. [] Neck: Normal range of motion, no tenderness, supple, no stridor. [] Cardiovascular:Heart rate regular rhythm, no murmur [] Lungs & Thorax: Bilateral breath sounds clear to auscultation [] Abdomen: Bowel sounds normal, soft, no tenderness, no masses, no pulsatile masses. [] Skin: Warm, dry, no erythema, no rash. [] Back: No tenderness, no CVA tenderness. [] Extremities: No tenderness, no cyanosis, no clubbing, ROM intact, no edema. [] Neurologic: Alert and oriented X 3, normal motor function, normal sensory function, no focal deficits noted. [] Psychologic: Affect normal, judgement normal, mood normal. [] (JOSELYN SEALS APRN) Physical Exam Constitutional: Well developed, well nourished, moderate distress, unstable gait HENT: Normocephalic, atraumatic, bilateral external ears normal, oropharynx moist, no oral exudates, nose normal. Eyes: PERRLA, EOMI, conjunctiva normal, no discharge. Neck: Normal range of motion, no tenderness, supple, no stridor. Cardiovascular: Heart rate irregular with an unorganized rhythm, no murmurs rubs or gallops Lungs & Thorax: Bilateral breath sounds clear to auscultation Abdomen: Bowel sounds normal, soft, no tenderness, no masses, no pulsatile masses. Nonsurgical abdomen, no peritoneal signs Skin: Warm, dry, no erythema, no rash. Back: No tenderness, no CVA tenderness. Extremities: No tenderness, no cyanosis, no clubbing, ROM intact, no edema. Neurologic: Alert and oriented X 3, grossly normal motor & sensory function, no focal deficits noted. Unstable gait Psychologic: Affect normal, judgement normal, anxious mood (SHELTON JULIO DO) Current Patient Data Vital Signs Vital Signs Date Time Temp Pulse Resp B/P (MAP) Pulse Ox O2 Delivery O2 Flow Rate FiO2 02/29/20 18:24 45 16 178/59 (98) 100 Room Air 02/29/20 17:25 98.5 Lab Results Laboratory Tests Test 02/29/20 17:35 White Blood Count 9.6 x10^3/uL (4.0-11.0) Red Blood Count 4.22 x10^6/uL (3.50-5.40) Hemoglobin 13.7 g/dL (12.0-15.5) Hematocrit 39.9 % (36.0-47.0) Mean Corpuscular Volume 95 fL (79-100) Mean Corpuscular Hemoglobin 33 pg (25-35) Mean Corpuscular Hemoglobin Concent 34 g/dL (31-37) Red Cell Distribution Width 12.6 % (11.5-14.5) Platelet Count 276 x10^3/uL (140-400) Neutrophils (%) (Auto) 67 % (31-73) Lymphocytes (%) (Auto) 25 % (24-48) Monocytes (%) (Auto) 7 % (0-9) Eosinophils (%) (Auto) 1 % (0-3) Basophils (%) (Auto) 1 % (0-3) Neutrophils # (Auto) 6.4 x10^3uL (1.8-7.7) Lymphocytes # (Auto) 2.4 x10^3/uL (1.0-4.8) Monocytes # (Auto) 0.7 x10^3/uL (0.0-1.1) Eosinophils # (Auto) 0.1 x10^3/uL (0.0-0.7) Basophils # (Auto) 0.1 x10^3/uL (0.0-0.2) D-Dimer (Margarita) 0.20 mg/L (0.00-0.50) Sodium Level 134 mmol/L (136-145) Potassium Level 3.5 mmol/L (3.5-5.1) Chloride Level 96 mmol/L (98-107) Carbon Dioxide Level 25 mmol/L (21-32) Anion Gap 13 (6-14) Blood Urea Nitrogen 14 mg/dL (7-20) Creatinine 0.9 mg/dL (0.6-1.0) Estimated GFR (Cockcroft-Gault) 61.5 BUN/Creatinine Ratio 16 (6-20) Glucose Level 114 mg/dL (70-99) Calcium Level 8.9 mg/dL (8.5-10.1) Magnesium Level 1.7 mg/dL (1.8-2.4) Total Bilirubin 1.2 mg/dL (0.2-1.0) Aspartate Amino Transf (AST/SGOT) 20 U/L (15-37) Alanine Aminotransferase (ALT/SGPT) 26 U/L (14-59) Alkaline Phosphatase 50 U/L (46-116) Creatine Kinase 68 U/L (26-192) Creatine Kinase MB (Mass) 2.5 ng/mL (0.0-3.6) Creatine Kinase MB Relative Index % (0-4) Troponin I Quantitative < 0.017 ng/mL (0-0.055) Total Protein 7.6 g/dL (6.4-8.2) Albumin 4.2 g/dL (3.4-5.0) Albumin/Globulin Ratio 1.2 (1.0-1.7) (SHELTON JULIO DO) EKG EKG [] (JOSELYN SEALS APRN) EKG EKG ordered and interpreted by myself at 1736 hrs. as third-degree heart block (SHELTON JULIO DO) Radiology/Procedures Radiology/Procedures [] (JOSELYN SEALS APRN) Radiology/Procedures CHEST AP ONLY Clinical indications: Shortness of breath. COMPARISON: The 2018. Findings: No acute lung infiltrate or pleural effusion or pulmonary edema or lung mass or pneumothorax is seen. The heart size, pulmonary vasculature, mediastinum and both tanvi are unremarkable. Impression: No acute radiographic abnormality is seen. Electronically signed by: Mele Delgado MD (02/29/2020 5:58 PM) [id number] (SHELTON JULIO DO) Heart Score Risk Factors: Risk Factors: DM, Current or recent (<one month) smoker, HTN, HLP, family history of CAD, obesity. Risk Scores: Risk Factors: DM, Current or recent (<one month) smoker, HTN, HLP, family history of CAD, obesity. (JOSELYN SEALS APRN) HEART Score for Chest Pain: HEART Score for Chest Pain Response (Comments) Value History Moderately Suspicious 1 ECG Nonspecific Repolarizatio 1 Age > 65 2 Risk Factors >3 Risk Factors or Hx CAD 2 Troponin < Normal Limit 0 Total 6 Course & Med Decision Making Course & Med Decision Making Pertinent Labs and Imaging studies reviewed. (See chart for details) [] (JOSELYN SEALS APRN) Course & Med Decision Making Airway patent, no overt respiratory distress, vitals remarkable for marked hypertension approximately 200s over 90s on arrival [employer] initially signed up for patient, I immediately took over patient care given concerning rhythm once attached to monitors and subsequent EKG concerning for third-degree heart block History and physical exam obtained with subsequent diagnostic work-up ordered Cardiology at [facility] called, case discussed. Unknown etiology of patient's third-degree heart block, TSH last checked in July and unremarkable, pending at this time without any other obvious/known inciting events. Recommendations were made to place patient on IV nitroglycerin drip for blood pressure control. Patient's right averaging between 50 to 70 bpm, external pacing pads present but no indication for use currently. Joint decision to transfer to [facility] for higher acuity of care Dr. Holt contacted and ultimately agreed to accept patient under his care at [facility] ICU setting for medical management and cardiology consultation and observation with likely intervention tomorrow morning I updated both patient and on proposed plan of care, they were amenable. All questions and concerns addressed prior to ER departure to [facility] in stable condition (SHELTON JULIO DO) Dragon Disclaimer Dragon Disclaimer This electronic medical record was generated, in whole or in part, using a voice recognition dictation system. (JOSELYN SEALS APRN) Departure Departure: Impression: Primary Impression: Third degree heart block Additional Impressions: HTN (hypertension) Hypothyroidism Hypercholesterolemia Disposition: 02 DC/TRF OTHER SHORT TERM HOS ([facility]) Admitting Physician: Erika Holt (SHELTON JULIO DO) Condition: STABLE Referrals: KIRK BELLO MD (PCP) Problem Qualifiers JOSELYN SEALS APRN Feb 29, 2020 17:16 SHELTON JULIO DO Feb 29, 2020 18:07
--- NOTE | 2020-02-29 17:39 | EKG ---
[facility] ED [facility] [address] [place] [id number] Test Date: 2020-02-29 Test Time: 17:35:38 Pat Name: CINDI FRAZIER Department: Room: Gender: F Unit Receptionist: : 1950 Requested By: JOSELYN SEALS Order Number: [id number] Reading MD: Con Klein MD Measurements Intervals [place] Rate: 73 P: LA: QRS: -51 QRSD: 140 T: 54 QT: 484 QTc: 538 Interpretive Statements SR PROBABLE MOBITZ TYPE 1 PVCS Electronically Signed On 03-03-2020 9:53:34 MAILMASTER by Con Klein MD
[2020-02-29 17:54] LABS: BASO # 0.1 x10^3/uL (0.0-0.2); BASO % 1 % (0-3); EOS # 0.1 x10^3/uL (0.0-0.7); EOS % 1 % (0-3); HEMATOCRIT 39.9 % (36.0-47.0); HEMOGLOBIN 13.7 g/dL (12.0-15.5); LYMPH # 2.4 x10^3/uL (1.0-4.8); LYMPH % 25 % (24-48); MEAN CORPUSCULAR HEMOGLOBIN 33 pg (25-35); MEAN CORPUSCULAR HGB CONC 34 g/dL (31-37); MEAN CORPUSCULAR VOLUME 95 fL (79-100); MONO # 0.7 x10^3/uL (0.0-1.1); MONO % 7 % (0-9); NEUT # 6.4 x10^3uL (1.8-7.7); NEUT % 67 % (31-73); PLATELET COUNT 276 x10^3/uL (140-400); RED BLOOD COUNT 4.22 x10^6/uL (3.50-5.40); RED CELL DISTRIBUTION WIDTH 12.6 % (11.5-14.5); WHITE BLOOD COUNT 9.6 x10^3/uL (4.0-11.0)
--- NOTE | 2020-02-29 18:01 | RAD ---
CHEST AP ONLY Clinical indications: Shortness of breath. COMPARISON: The 2018. Findings: No acute lung infiltrate or pleural effusion or pulmonary edema or lung mass or pneumothorax is seen. The heart size, pulmonary vasculature, mediastinum and both tanvi are unremarkable. Impression: No acute radiographic abnormality is seen. Electronically signed by: Mele Delgado MD (02/29/2020 5:58 PM) [id number]
[2020-02-29 18:03] LABS: CALCIUM 8.9 mg/dL (8.5-10.1); CREATININE 0.9 mg/dL (0.6-1.0); GFR 61.5; POTASSIUM 3.5 mmol/L (3.5-5.1)
[2020-02-29 18:08] LABS: ALBUMIN 4.2 g/dL (3.4-5.0); ALBUMIN/GLOBULIN RATIO 1.2 (1.0-1.7); MAGNESIUM 1.7 mg/dL (1.8-2.4); TOTAL BILIRUBIN 1.2 mg/dL (0.2-1.0); TOTAL PROTEIN 7.6 g/dL (6.4-8.2)
[2020-02-29] MEDS ORDERED: NITROGLYCERIN PREMIX 250 ML IV ONE ×2 (18:24→18:45)
[2020-02-29] MEDS ORDERED: ACETAMINOPHEN 500 MG TABLET PO ONE (18:45)
[2020-02-29 19:05] VITALS: BP 158/61
== END 2020-02-29 20:11 | disposition short-term general hospital (02) ==
LOC: ER 17:14
DX: I44.2 Atrioventricular block, complete (principal); I10 Essential (primary) hypertension; E03.9 Hypothyroidism, unspecified; E78.00 Pure hypercholesterolemia, unspecified; Z87.891 Personal history of nicotine dependence; Z88.1 Allergy status to other antibiotic agents
CPT/HCPCS: 36415; 71045; 80053; 82553; 83735; 84484; 85025; 85379; 93005; 96365; 99285; J3490

== ENCOUNTER → 2021-06-23 | Outpatient (CLI) | payer BC, MEDICARE ==
[~2021-06-23] MED LIST changes: -VALS1TAB22 PO; +VALS1TAB23 PO
--- NOTE | 2021-06-25 11:43 | RAD ---
Study: XR KNEE 1-2 VIEWS Indication: Bilateral knee pain. Comparison: None. Findings: Moderate lateral femorotibial compartment joint space narrowing on the right and left and lateral lar melani than medial joint line osteophytes. Bilateral genu valgus. Moderate arthrosis at the right patell ofemoral compartment and mild on the left. Small knee joint effusion on the right. No significant kne e joint effusion on the left. There are likely small bilateral loose bodies. No acute fracture. 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 Bilateral genu valgus. Small knee joint effusion on the rig ht. Suspected small bilateral loose bodies. Electronically signed by: WILL BOSWELL MD (06/24/2021 10:19 AM) [id number]
== END ==
LOC: RAD 11:07
PROVIDERS: ATTEND Family Medicine
DX: M25.562 Pain in left knee (principal); M25.561 Pain in right knee
CPT/HCPCS: 73560-50